=== PATIENT | female | born 1990 | race Caucasian/White ===

== ENCOUNTER 2016-09-03 07:40 | Inpatient (IN) | payer OTHER ==
[~2016-09-03] VITALS: Ht 162.6 cm; Wt 66.2 kg
[~2016-09-03 07:40] MED LIST: ATIVAN2 MG PO; ENDOCET 5-3251 EACH PO; FERROUS SULFAT325 MG PO; IBUPROFEN800 MG PO; KLONOPIN0.5 M1 PO; METHADONE10 MG PO; PRENATAL TABLE1 EAC3 PO; SUBOXONE 8 MG-1 EAC2 SL; ZOFRAN ODT4 MG PO
[2016-09-03 09:17] LABS: QUANTITATIVE HCG < 4.0 MIU/ML
[2016-09-03 09:31] LABS: CHLORIDE 105 mEq/L (99-109); POTASSIUM 3.5 mEq/L (3.7-5.4); SODIUM 137 mEq/L (136-147)
[2016-09-03 09:33] LABS: GLUCOSE 89 mg/dL (70-99); HEMATOCRIT 35.1 % (36.0-46.0); MCH 30.3 PG (29.0-34.0); MCHC 33.3 G/DL (30.0-36.0); MCV 90.9 FL (83-99); RED BLOOD COUNT 3.86 M/uL (3.80-5.20)
[2016-09-03 09:34] LABS: ANION GAP 8 MEQ/L (2-14)
[2016-09-03 09:37] LABS: GFR ESTIMATE (CALCULATED) > 59 mL/min/
[2016-09-03 09:38] LABS: UREA NITROGEN (BUN) 15 mg/dL (9-23)
[2016-09-03 09:59] LABS: WHITE BLOOD COUNT 1.4 K/uL (4.1-10.2)
[2016-09-03 10:17] LABS: ADD MIUA? NO; BILIRUBIN NEGATIVE; BLOOD NEGATIVE; COLOR STRAW ((YELLOW)); GLUCOSE (STRIP) NEGATIVE; KETONES NEGATIVE; LEUKOCYTES NEGATIVE; NITRITE NEGATIVE; PROTEIN (STRIP) NEGATIVE; SPECIFIC GRAVITY 1.004 (1.000-1.030); UROBILINOGEN 0.2 MG/DL (0.2-1.0)
[2016-09-03 10:48] LABS: EOSINOPHIL (%) 0.7 % (0-5); IMMATURE GRANULOCYTE (%) 0.7 % (0.0-0.7); INSTRUMENT ABS NEUTROPHIL CT 1.1 K/uL; LYMPHOCYTE COUNT 0.2 K/uL (1.0-2.8); MEAN PLAT.VOLUME 9.9 uM^3 (9.5-12.4); MONOCYTE (%) 0.7 % (3-12); NEUTROPHIL (%) 82.7 % (45-76); NEUTROPHIL COUNT 1.1 K/uL (1.8-6.4); PLAT.SUFFICIENCY ADEQUATE; PLATELET CLUMPS PRESENT - PLATELET COUNT APPEARS ADQ.; PLATELET COUNT 157 K/uL (156-360)
[2016-09-03] MEDS ORDERED: AMPHETAMINE SAL30 MG PO (15:46)
[2016-09-03] MEDS ORDERED: GABAPENTIN300 MG PO (15:46)
[2016-09-03] MEDS ORDERED: BUPROPION XL300 MG PO (15:47)
[2016-09-03] MEDS ORDERED: SERTRALINE HCL100 MG PO (15:48)
[2016-09-03 17:20] LABS: ADD MEDTOX COMMENT Y; AMPHETAMINE PRESUMPTIVE POSITIVE (500 ng/mL); BARBITURATES NEGATIVE (200 ng/mL); BENZODIAZEPINES PRESUMPTIVE POSITIVE (150 ng/mL); COCAINE NEGATIVE (150 ng/mL); INTERNAL CONTROLS VALID? YES; METHADONE PRESUMPTIVE POSITIVE (200 ng/mL); METHAMPHETAMINE NEGATIVE (500 ng/mL); OPIATES (MORPHINE) PRESUMPTIVE POSITIVE (100 ng/mL); OXYCODONE NEGATIVE (100 ng/mL); PHENCYCLIDINE NEGATIVE (25 ng/mL); PROPOXYPHENE NEGATIVE (300 ng/mL); THC CANNABINOIDS NEGATIVE (50 ng/mL); TRICYCLIC ANTIDEPRESSANTS NEGATIVE (300 ng/mL)
[2016-09-03 18:23] LABS: BENZODIAZEPINES, URINE SCREEN POSITIVE (200 ng/mL)
[2016-09-03 20:43] VITALS: BP 108/68
[2016-09-04] VITALS (7 sets, daily range): BP systolic 90–130; BP diastolic 50–66
[2016-09-04 10:21] LABS: HEMATOCRIT 35.1 % (36.0-46.0); MCH 30.7 PG (29.0-34.0); MCHC 33.6 G/DL (30.0-36.0); MCV 91.4 FL (83-99); MEAN PLAT.VOLUME 9.9 uM^3 (9.5-12.4); PLATELET COUNT 112 K/uL (156-360); RBC DIS.WIDTH-CV 13.6 % (11.8-14.6); RBC DIS.WIDTH-SD 45.9 % (39-53); RED BLOOD COUNT 3.84 M/uL (3.80-5.20); WHITE BLOOD COUNT 12.4 K/uL (4.1-10.2)
[2016-09-04 10:38] LABS: ABS NEUTROPHIL COUNT 11.7; BAND NEUTROPHILS 23.7 % (0-8.0); EOSINOPHIL ABS CT 0; INSTRUMENT ABS NEUTROPHIL CT 10.2 K/uL; LYMPHOCYTES 3.5 % (15.0-45.0); PLAT.SUFFICIENCY DECREASED; SMUDGE CELLS 7.9; TEAR DROP CELLS 1+
[2016-09-04 10:47] LABS: HPCA INDEX 0.13
[2016-09-04 10:48] LABS: HIV INDEX 0.12; HIV-1/2 AB/AG COMBO Nonreactive
[2016-09-04 11:21] LABS: ANION GAP 13 MEQ/L (2-14); CHLORIDE 108 MEQ/L (99-109); GFR ESTIMATE (CALCULATED) > 59 mL/min/; GLUCOSE 71 mg/dL (70-99); POTASSIUM 4.1 MEQ/L (3.7-5.4); SAMPLE HEMOLYSIS CHECK 0; SAMPLE ICTERIC CHECK 0; SAMPLE LIPEMIA CHECK 0; SODIUM 139 MEQ/L (136-147); UREA NITROGEN (BUN) 17 mg/dL (9-23)
[2016-09-04 13:15] LABS: CHLAMYDIA TRACHOMATIS NEGATIVE; NEISSERIA GONORRHOEAE NEGATIVE
[2016-09-05 04:25] VITALS: BP 111/68
[2016-09-05] MEDS ORDERED: FLAGYL500 MG PO (08:44)
[2016-09-05] MEDS ORDERED: DOXYCYCLINE HY100 M3 PO (08:44)
== END 2016-09-05 11:45 | disposition home or self-care (01) | DRG 758 ==
LOC: EME 07:40 → EDOF 15:33 → 2EAST 15:33 → EDOF 15:33 → 2EAST 19:22
PROVIDERS: Obstetrics & Gynecology; Physician Assistant
DX: N73.0 Acute parametritis and pelvic cellulitis (principal); F11.20 Opioid dependence, uncomplicated; F33.9 Major depressive disorder, recurrent, unspecified; K59.00 Constipation, unspecified; B18.2 Chronic viral hepatitis C; F17.210 Nicotine dependence, cigarettes, uncomplicated; F41.1 Generalized anxiety disorder; F90.9 Attention-deficit hyperactivity disorder, unspecified type; Z87.440 Personal history of urinary (tract) infections
CPT/HCPCS: 74176; 76856; 80048; 81003; 83605; 84702; 84999; 85025; 86703; 86803; 87040; 87210; 87491; 87591; 93005; 99281; 99285; G0378; J1885; J2270; J2405; J7030; J7050; J7120

== ENCOUNTER 2016-11-07 19:50 | Emergency (ER) | payer OTHER ==
[~2016-11-07] VITALS: Ht 165.1 cm; Wt 63.4 kg
[~2016-11-07 19:50] MED LIST changes: +AMPHETAMINE SAL30 MG PO; +BUPROPION XL300 MG PO; +DOXYCYCLINE HY100 M3 PO; +FLAGYL500 MG PO; +GABAPENTIN300 MG PO; +SERTRALINE HCL100 MG PO
[2016-11-07 20:16] LABS: ADD MIUA? YES; BILIRUBIN NEGATIVE; BLOOD NEGATIVE; COLOR YELLOW ((YELLOW)); GLUCOSE (STRIP) NEGATIVE; KETONES NEGATIVE; LEUKOCYTES NEGATIVE; NITRITE NEGATIVE; PROTEIN (STRIP) 30; SPECIFIC GRAVITY 1.035 (1.000-1.030); UROBILINOGEN 0.2 MG/DL (0.2-1.0)
[2016-11-07 20:26] LABS: HEMATOCRIT 33.5 % (36.0-46.0); MCH 30.8 PG (29.0-34.0); MCHC 33.4 G/DL (30.0-36.0); MEAN PLAT.VOLUME 9.3 uM^3 (9.5-12.4); PLATELET COUNT 278 K/uL (156-360); RBC DIS.WIDTH-CV 13.6 % (11.8-14.6); RBC DIS.WIDTH-SD 46.7 % (39-53); RED BLOOD COUNT 3.64 M/uL (3.80-5.20); WHITE BLOOD COUNT 8.1 K/uL (4.1-10.2)
[2016-11-07 20:32] LABS: BACTERIA RARE /HPF; EPITHELIAL CELLS 2+ /HPF; MUCUS 2+ /LPF; RED BLOOD CELLS 0-5 /HPF (0-5); UCUL ADDED? NO; WHITE BLOOD CELLS 0-5 /HPF (0-5)
[2016-11-07 20:35] LABS: CHLORIDE 103 mEq/L (99-109); POTASSIUM 3.6 mEq/L (3.7-5.4); SODIUM 138 mEq/L (136-147)
[2016-11-07 20:37] LABS: GLUCOSE 84 mg/dL (70-99)
[2016-11-07 20:38] LABS: ANION GAP 12 MEQ/L (2-14)
[2016-11-07 20:39] LABS: TOTAL BILIRUBIN 0.6 mg/dL (0.0-1.0)
[2016-11-07 20:40] LABS: ALKALINE PHOSPHATASE 93 IU/L (3-129)
[2016-11-07 20:41] LABS: GFR ESTIMATE (CALCULATED) > 59 mL/min/
[2016-11-07 20:42] LABS: UREA NITROGEN (BUN) 20 mg/dL (9-23)
[2016-11-07 20:50] LABS: QUANTITATIVE HCG < 4.0 MIU/ML
[2016-11-07] MEDS ORDERED: AMPHETAMINE SAL20 MG PO (22:35)
[2016-11-08] MEDS ORDERED: SKELAXIN800 MG PO (00:19)
[2016-11-08 00:37] VITALS: BP 111/77
[2016-11-09 12:19] LABS: CHLAMYDIA TRACHOMATIS NEGATIVE; NEISSERIA GONORRHOEAE NEGATIVE
== END 2016-11-08 00:38 | disposition home or self-care (01) ==
LOC: EME 19:50
PROVIDERS: Physician Assistant
DX: S39.012A Strain of muscle, fascia and tendon of lower back, initial encounter (principal); X58.XXXA Exposure to other specified factors, initial encounter; N89.8 Other specified noninflammatory disorders of vagina; R14.0 Abdominal distension (gaseous); K59.00 Constipation, unspecified; F17.200 Nicotine dependence, unspecified, uncomplicated
CPT/HCPCS: 74020; 76856; 80053; 81003; 83605; 84702; 85027; 87210; 87491; 87591; 99281; 99285; J1885; Q0177

== ENCOUNTER 2016-12-03 22:53 | Inpatient (IN) | payer OTHER ==
[~2016-12-03] VITALS: Ht 162.6 cm; Wt 60.0 kg
[~2016-12-03 22:53] MED LIST changes: +AMPHETAMINE SAL20 MG PO; -METHADONE10 MG PO; +METHADONE10 MG/1 M1 PO; +SKELAXIN800 MG PO
[2016-12-03 23:45] LABS: HEMATOCRIT 33.3 % (36.0-46.0); MCH 30.4 PG (29.0-34.0); MCHC 33.6 G/DL (30.0-36.0); MCV 90.5 FL (83-99); MEAN PLAT.VOLUME 9.4 uM^3 (9.5-12.4); PLATELET COUNT 328 K/uL (156-360); RBC DIS.WIDTH-CV 12.8 % (11.8-14.6); RBC DIS.WIDTH-SD 42.5 % (39-53); RED BLOOD COUNT 3.68 M/uL (3.80-5.20); WHITE BLOOD COUNT 8.8 K/uL (4.1-10.2)
[2016-12-03 23:55] LABS: CHLORIDE 104 mEq/L (99-109); POTASSIUM 4.1 mEq/L (3.7-5.4); SODIUM 140 mEq/L (136-147)
[2016-12-03 23:57] LABS: GLUCOSE 111 mg/dL (70-99)
[2016-12-03 23:58] LABS: ANION GAP 12 MEQ/L (2-14)
[2016-12-03 23:59] LABS: TOTAL BILIRUBIN 0.3 mg/dL (0.0-1.0)
[2016-12-04] LABS: ALKALINE PHOSPHATASE 115 IU/L (3-129)
[2016-12-04 00:01] LABS: GFR ESTIMATE (CALCULATED) > 59 mL/min/
[2016-12-04 00:02] LABS: UREA NITROGEN (BUN) 11 mg/dL (9-23)
[2016-12-04 00:10] LABS: QUANTITATIVE HCG < 4.0 MIU/ML
[2016-12-04 08:30] LABS: ADD MIUA? YES; BILIRUBIN NEGATIVE; BLOOD SMALL; COLOR YELLOW ((YELLOW)); GLUCOSE (STRIP) NEGATIVE; KETONES 5; LEUKOCYTES TRACE; NITRITE POSITIVE; PROTEIN (STRIP) 30
[2016-12-04 08:44] LABS: BACTERIA 3+ /HPF; CASTS NONE SEEN /LPF; CRYSTALS NONE SEEN; EPITHELIAL CELLS 1+ /HPF; MUCUS 1+ /LPF; UCUL ADDED? YES; WHITE BLOOD CELLS 0-5 /HPF (0-5)
[2016-12-04] MEDS ORDERED: GABAPENTIN400 MG PO (10:32)
[2016-12-04 13:27] VITALS: BP 113/70
[2016-12-04 15:31] VITALS: BP 102/56
[2016-12-04 19:57] VITALS: BP 105/66
[2016-12-04 21:36] LABS: BARBITUATES QUANT VALUE 0 NG/ML; BENZODIAZEPINES, URINE SCREEN POSITIVE (200 ng/mL); PHENCYCLIDINE QUANT VALUE 0 NG/ML
[2016-12-05 00:41] VITALS: BP 116/78
[2016-12-05 03:17] VITALS: BP 111/74
[2016-12-05 06:46] LABS: HEMATOCRIT 29.5 % (36.0-46.0); MCH 30.7 PG (29.0-34.0); MCHC 32.9 G/DL (30.0-36.0); MCV 93.4 FL (83-99); MEAN PLAT.VOLUME 9.5 uM^3 (9.5-12.4); PLATELET COUNT 271 K/uL (156-360); RBC DIS.WIDTH-SD 44.7 % (39-53); RED BLOOD COUNT 3.16 M/uL (3.80-5.20); WHITE BLOOD COUNT 8.5 K/uL (4.1-10.2)
[2016-12-05 07:09] LABS: ANION GAP 9 MEQ/L (2-14); CHLORIDE 111 MEQ/L (99-109); GFR ESTIMATE (CALCULATED) > 59 mL/min/; GLUCOSE 110 mg/dL (70-99); POTASSIUM 4.1 MEQ/L (3.7-5.4); SAMPLE HEMOLYSIS CHECK 0; SAMPLE ICTERIC CHECK 0; SAMPLE LIPEMIA CHECK 0; SODIUM 142 MEQ/L (136-147); UREA NITROGEN (BUN) 8 mg/dL (9-23)
[2016-12-05 07:56] VITALS: BP 102/63
[2016-12-05 13:16] LABS: INTER. NORMALIZED RATIO 1.2; PROTHROMBIN TIME 12.9 SEC (10.2-12.9)
[2016-12-05 13:19] LABS: PTT 34.4 SEC (25-37)
[2016-12-05 15:54] VITALS: BP 130/85
[2016-12-05 23:22] VITALS: BP 115/80
[2016-12-06 08:11] VITALS: BP 112/77
[2016-12-06 16:40] VITALS: BP 138/89
[2016-12-07 07:18] LABS: IMM.RETIC FRACTION 8.5 % (3-19); RETIC HGB EQUIVALENT 32.3 (28-36); RETICULOCYTE COUNT 0.8 % (0.5-1.8)
[2016-12-07 07:47] LABS: ANION GAP 8 MEQ/L (2-14); CHLORIDE 104 MEQ/L (99-109); GFR ESTIMATE (CALCULATED) > 59 mL/min/; GLUCOSE 84 mg/dL (70-99); IRON 20 MCG/DL (35-150); POTASSIUM 4.8 MEQ/L (3.7-5.4); SAMPLE HEMOLYSIS CHECK 0; SAMPLE ICTERIC CHECK 0; SAMPLE LIPEMIA CHECK 0; SODIUM 139 MEQ/L (136-147); UREA NITROGEN (BUN) 7 mg/dL (9-23)
[2016-12-07 10:04] VITALS: BP 124/85
[2016-12-07 15:42] VITALS: BP 124/79
[2016-12-07 23:48] VITALS: BP 116/77
[2016-12-08 08:26] VITALS: BP 118/78
[2016-12-08 09:48] LABS: HEMATOCRIT 29.8 % (36.0-46.0); MCH 30.9 PG (29.0-34.0); MCHC 33.9 G/DL (30.0-36.0); MCV 91.1 FL (83-99); MEAN PLAT.VOLUME 9.1 uM^3 (9.5-12.4); PLATELET COUNT 278 K/uL (156-360); RBC DIS.WIDTH-CV 12.9 % (11.8-14.6); RBC DIS.WIDTH-SD 42.4 % (39-53); RED BLOOD COUNT 3.27 M/uL (3.80-5.20); WHITE BLOOD COUNT 9.3 K/uL (4.1-10.2)
[2016-12-08 10:10] LABS: ANION GAP 8 MEQ/L (2-14); CHLORIDE 103 MEQ/L (99-109); GFR ESTIMATE (CALCULATED) > 59 mL/min/; GLUCOSE 101 mg/dL (70-99); POTASSIUM 4.3 MEQ/L (3.7-5.4); SAMPLE HEMOLYSIS CHECK 0; SAMPLE ICTERIC CHECK 0; SAMPLE LIPEMIA CHECK 0; SODIUM 139 MEQ/L (136-147); UREA NITROGEN (BUN) 15 mg/dL (9-23)
[2016-12-08 10:11] LABS: GFR ESTIMATE (CALCULATED) > 59 mL/min/; VANCOMYCIN, TROUGH 18.6 MCG/ML (10-20)
[2016-12-08 15:30] VITALS: BP 130/89
[2016-12-08] MEDS ORDERED: TORADOL10 MG PO (16:58)
[2016-12-08] MEDS ORDERED: DIFLUCAN200 MG PO (17:00)
[2016-12-08] MEDS ORDERED: CEFTRIAXONE2 G1 IM (17:00)
[2016-12-08] MEDS ORDERED: SENNA S TABLET1 EACH PO (17:01)
[2016-12-08] MEDS ORDERED: CEFTRIAXONE2 G1 IV (17:08)
== END 2016-12-08 17:50 | disposition home or self-care (01) | DRG 540 ==
LOC: EME 22:53 → 3EAST 12-04 07:44 → EDOF 12-04 07:44 → 3EAST 12-04 07:44 → ENRESERV 12-04 07:45 → CANRESERV 12-04 07:45 → EDOF 12-04 08:06 → ENRESERV 12-04 10:45 → 3EAST 12-04 12:44
PROVIDERS: Family Medicine; Internal Medicine; Internal Medicine Infectious Disease; Radiology Diagnostic Radiology
PROC: 0S923ZX Drainage of Lumbar Vertebral Disc, Percutaneous Approach, Diagnostic (ICD-10-PCS; principal; 2016-12-05)
DX: M46.26 Osteomyelitis of vertebra, lumbar region (principal); M46.46 Discitis, unspecified, lumbar region; N39.0 Urinary tract infection, site not specified; B96.20 Unspecified Escherichia coli [E. coli] as the cause of diseases classified elsewhere; D50.9 Iron deficiency anemia, unspecified; F11.20 Opioid dependence, uncomplicated; F14.10 Cocaine abuse, uncomplicated; K59.00 Constipation, unspecified; R53.1 Weakness; R10.30 Lower abdominal pain, unspecified; R11.2 Nausea with vomiting, unspecified; F90.9 Attention-deficit hyperactivity disorder, unspecified type; G89.29 Other chronic pain; F17.200 Nicotine dependence, unspecified, uncomplicated
CPT/HCPCS: 72157; 72158; 74000; 74177; 77012; 80048; 80053; 80202; 80306 90; 81003; 82565; 82607; 82746; 83540; 83605; 84702; 85027; 85045; 85610; 85651; 85730; 86140; 87040; 87070; 87075; 87077; 87086; 87106; 87186; 87205; 90686; 93306; 99281; 99285; J0696; J1650; J1885; J2405; J2543; J3010; J3370; J7030; J7050